=== PATIENT | female | born 1990 | race Caucasian/White ===

== ENCOUNTER 2018-08-04 21:49 | Emergency (ER) | payer SELFPAY | END 2018-08-05 00:53 | disposition left against medical advice (07) | LOC: ER 21:49 | DX: Z53.21 Procedure and treatment not carried out due to patient leaving prior to being seen by health care provider (principal) ==

== ENCOUNTER 2019-01-24 17:29 | Emergency (ER) | payer OTHER ==
[~2019-01-24] VITALS: Ht 175.3 cm; Wt 102.0 kg
[2019-01-24] MEDS ORDERED: HYDROCODONE/ACETAMINOPHEN 5/325MG TABLET PO ONE (23:15)
[2019-01-25 00:31] VITALS: BP 128/74
== END 2019-01-25 00:31 | disposition home or self-care (01) ==
LOC: ER 17:29
DX: M79.672 Pain in left foot (principal); M79.671 Pain in right foot; M21.611 Bunion of right foot; Z98.890 Other specified postprocedural states
CPT/HCPCS: 81025; 99282

== ENCOUNTER 2020-09-07 00:37 | Emergency (ER) | payer MEDICAID, OTHER ==
[~2020-09-07] VITALS: Ht 172.7 cm; Wt 93.0 kg
[2020-09-07 01:11] VITALS: BP 141/95
[2020-09-07] MEDS ORDERED: CETI-89 MT (02:08)
[2020-09-07] MEDS ORDERED: ALBU18HF2 IH (02:08)
== END 2020-09-07 02:25 | disposition home or self-care (01) ==
LOC: ER 00:37
DX: R05 Cough (principal); R09.81 Nasal congestion; Z20.822 Contact with and (suspected) exposure to COVID-19; Z98.890 Other specified postprocedural states
CPT/HCPCS: 71045; 99284; C9803; U0003

== ENCOUNTER 2021-11-11 20:51 | Emergency (ER) | payer MEDICAID, OTHER ==
[~2021-11-11] VITALS: Ht 172.7 cm; Wt 109.8 kg
[~2021-11-11 20:51] MED LIST: ALBU18HF2 IH; CETI-89 MT
[2021-11-12 00:18] LABS: BASOPHILS % 0.2 % (0.0-2.0); EOSINOPHILS % 1.8 % (0.0-5.0); HEMATOCRIT. 33.1 % (36.0-48.0); HEMOGLOBIN. 11.2 g/dL (12.0-16.0); MEAN CORPUSCULAR HEMOGLOBIN 29.9 pg (28.0-32.0); MEAN CORPUSCULAR VOLUME 88.5 fL (81.0-99.0); MEAN PLATELET VOLUME 7.5 fl (7.4-10.4); MONOCYTES % 8.5 % (2.0-8.0); NEUTROPHILS % 67.5 % (40.0-76.0); PLATELET 275 x1000/uL (130-400); RED BLOOD CELL COUNT 3.75 mill/uL (4.2-5.4); RED CELL DISTRIBUTION WIDTH 13.4 % (11.6-14.6)
[2021-11-12 00:36] LABS: CHLORIDE 105 mEq/L (98-107)
[2021-11-12 01:28] LABS: HCG SCREEN NEGATIVE
[2021-11-12 01:51] VITALS: BP 126/78
== END 2021-11-12 01:56 | disposition home or self-care (01) ==
LOC: ER 20:51
DX: R00.2 Palpitations (principal); R07.89 Other chest pain; Z98.890 Other specified postprocedural states
CPT/HCPCS: 36415; 71045; 80053; 84484; 84703; 85025; 93005; 99285

== ENCOUNTER 2021-12-15 19:11 | Emergency (ER) | payer MEDICAID ==
[~2021-12-15] VITALS: Ht 167.6 cm; Wt 109.0 kg
[2021-12-15] MEDS ORDERED: DOXYCYCLINE HYCLATE 100MG CAPSULE PO ONE ×2 (20:15→20:30)
[2021-12-15] MEDS ORDERED: IBUPROFEN 600MG TABLET PO ONE (20:30)
[2021-12-15] MEDS ORDERED: BACITRACIN 15GM TUBE TOP ONE (20:30)
[2021-12-15] MEDS ORDERED: IBUP-2029 MT (20:36)
[2021-12-15] MEDS ORDERED: DOXY100T2 MT (20:36)
[2021-12-15] MEDS ORDERED: DOXYCYCLINE HYCLATE 100MG CAPSULE PO SCH (20:45)
[2021-12-15 20:47] VITALS: BP 112/78
== END 2021-12-15 20:47 | disposition home or self-care (01) ==
LOC: ER 19:11
DX: L98.498 Non-pressure chronic ulcer of skin of other sites with other specified severity (principal); I10 Essential (primary) hypertension; Z98.890 Other specified postprocedural states; R21 Rash and other nonspecific skin eruption
CPT/HCPCS: 81025; 99283

== ENCOUNTER 2022-11-14 15:13 | Emergency (ER) | payer MEDICAID, OTHER ==
[~2022-11-14] VITALS: Ht 170.2 cm; Wt 113.4 kg
[~2022-11-14 15:13] MED LIST changes: +DOXY100T2 MT; +IBUP-2029 MT
[2022-11-14 15:23] VITALS: TEMP 98.5; O2SAT 97
[2022-11-14 16:15] VITALS: BP 123/80; PULSE 84; RESP 16
[2022-11-14] MEDS ORDERED: KETOROLAC 60MG/2ML VIAL IM ONE (16:15)
[2022-11-14 16:36] LABS: HCG SCREEN NEGATIVE
[2022-11-14 16:43] LABS: BASOPHILS % 0.3 % (0.0-2.0); EOSINOPHILS % 0.8 % (0.0-5.0); HEMATOCRIT. 35.4 % (36.0-48.0); HEMOGLOBIN. 12.2 g/dL (12.0-16.0); LYMPHOCYTES % 15.1 % (20.0-50.0); MEAN CORPUSCULAR HEMOGLOBIN 30.4 pg (28.0-32.0); MEAN CORPUSCULAR VOLUME 88.2 fL (81.0-99.0); MEAN PLATELET VOLUME 7.6 fl (7.4-10.4); MONOCYTES % 6.6 % (2.0-8.0); NEUTROPHILS % 77.2 % (40.0-76.0); PLATELET 287 x1000/uL (130-400); RED BLOOD CELL COUNT 4.01 mill/uL (4.2-5.4); RED CELL DISTRIBUTION WIDTH 13.4 % (11.6-14.6)
[2022-11-14 16:55] LABS: CHLORIDE 107 mEq/L (98-107)
[2022-11-14 16:56] LABS: CLARITY URINE HAZY (CLEAR); COLOR URINE YELLOW (YELLOW); SPECIFIC GRAVITY URINE 1.023 (1.005-1.030)
[2022-11-14 16:57] LABS: KETONES URINE NEGATIVE (NEGATIVE); LEUKOCYTE ESTERASE URINE NEGATIVE (NEGATIVE); NITRITE URINE POSITIVE (NEGATIVE); OCCULT BLOOD URINE TRACE (NEGATIVE); PROTEIN URINE NEGATIVE (NEGATIVE)
[2022-11-14] MEDS ORDERED: CEFTRIAXONE SODIUM 1 G/VIAL IM ONE (17:15)
[2022-11-14] MEDS ORDERED: LIDOCAINE HCL 1% 20ML VIAL (Pyxis) INJ INFIL ONE (17:15)
[2022-11-14] MEDS ORDERED: CEFP200T13 MT (17:58)
[2022-11-14] MEDS ORDERED: TOPUD PO (17:58)
[2022-11-14] MEDS ORDERED: IBUP-2028 MT (17:58)
== END 2022-11-14 18:13 | disposition home or self-care (01) ==
LOC: ER 15:36
DX: N39.0 Urinary tract infection, site not specified (principal); Z98.890 Other specified postprocedural states; Z79.899 Other long term (current) drug therapy
CPT/HCPCS: 36415; 74176; 80053; 81003; 81025; 83690; 84703; 85025; 96372; 99285; J0696; J1885; J3490; Z7610

== ENCOUNTER 2023-04-16 22:40 | Emergency (ER) | payer OTHER ==
[~2023-04-16] VITALS: Ht 172.7 cm; Wt 114.7 kg
[~2023-04-16 22:40] MED LIST changes: +CEFP200T13 MT; +IBUP-2028 MT; +TOPUD PO
[2023-04-16 22:46] VITALS: O2SAT 96
[2023-04-16 23:19] LABS: BASOPHILS % 0.3 % (0.0-2.0); EOSINOPHILS % 1.9 % (0.0-5.0); HEMATOCRIT. 34.9 % (36.0-48.0); HEMOGLOBIN. 11.9 g/dL (12.0-16.0); LYMPHOCYTES % 18.6 % (20.0-50.0); MEAN CORPUSCULAR HGB CONC 34.2 g/dL (31.0-37.0); MEAN CORPUSCULAR VOLUME 87.5 fL (81.0-99.0); MEAN PLATELET VOLUME 7.5 fl (7.4-10.4); MONOCYTES % 6.5 % (2.0-8.0); NEUTROPHILS % 72.7 % (40.0-76.0); PLATELET 288 x1000/uL (130-400); RED BLOOD CELL COUNT 3.99 mill/uL (4.2-5.4); RED CELL DISTRIBUTION WIDTH 13.3 % (11.6-14.6); WHITE BLOOD COUNT 9.7 x1000/uL (4.5-11.0)
[2023-04-16 23:41] LABS: ALANINE AMINOTRANSFERASE 11 IU/L (10-49); ALBUMIN 4.1 g/dL (3.2-4.8); ASPARTATE AMINOTRANSFERASE 15 IU/L (<34); BILIRUBIN TOTAL 0.5 mg/dL (0.1-1.0); CALCIUM 9.5 mg/dL (8.7-10.4); CARBON DIOXIDE 24 mEq/L (21-32); CHLORIDE 106 mEq/L (98-107); CREATININE 0.6 mg/dL (0.6-1.0); GLUCOSE 120 mg/dL (70-105); POTASSIUM 3.6 mEq/L (3.5-5.1); PROTEIN TOTAL 7.3 g/dL (6.0-8.3); SODIUM 138 mEq/L (136-145); UREA NITROGEN BLOOD 13 mg/dL (9-23)
[2023-04-16] MEDS ORDERED: KETOROLAC 60MG/2ML VIAL IM STA (23:59)
[2023-04-16] MEDS ORDERED: ONDANSETRON HCL 4MG/2ML INJ IM STA (23:59)
[2023-04-17 00:23] VITALS: BP 121/87
[2023-04-17 00:26] LABS: CLARITY URINE CLEAR (CLEAR); COLOR URINE YELLOW (YELLOW); PH URINE 6.5 (4.5-8.0); SPECIFIC GRAVITY URINE 1.021 (1.005-1.030)
[2023-04-17 00:27] LABS: GLUCOSE URINE NEGATIVE (NEGATIVE); KETONES URINE NEGATIVE (NEGATIVE); LEUKOCYTE ESTERASE URINE NEGATIVE (NEGATIVE); NITRITE URINE NEGATIVE (NEGATIVE); OCCULT BLOOD URINE TRACE (NEGATIVE); PROTEIN URINE NEGATIVE (NEGATIVE); UROBILINOGEN URINE 1 E.U./dL (0.2-1.0)
[2023-04-17 00:29] LABS: BACTERIA URINE TRACE; RBC URINE 0-2 /hpf (0-2); SQUAMOUS EPITHELIAL CELL URINE FEW /lpf (RARE/1+); WBC URINE NONE SEEN /hpf (0-2)
[2023-04-17] MEDS ORDERED: NAPR-681 PO (01:13)
[2023-04-17] MEDS ORDERED: D-ME473S50 PO (01:13)
[2023-04-17] MEDS ORDERED: ALBU18HF2 IH (01:13)
[2023-04-17 01:28] VITALS: PULSE 100; RESP 19; TEMP 98.1
== END 2023-04-17 01:32 | disposition home or self-care (01) ==
LOC: ER 22:40
DX: J20.9 Acute bronchitis, unspecified (principal); R11.2 Nausea with vomiting, unspecified; Z98.890 Other specified postprocedural states; Z79.899 Other long term (current) drug therapy; Z20.822 Contact with and (suspected) exposure to COVID-19
CPT/HCPCS: 80053; 81003; 81025; 87430; 83690; 85025; 87070; 36415; 71045; 99284; 87426; 96372; C9803; J1885; J2405; Z7610

== ENCOUNTER 2024-02-11 19:49 | Emergency (ER) | payer OTHER ==
[~2024-02-11 19:49] MED LIST changes: +D-ME473S50 PO; +NAPR-681 PO
[2024-02-11 20:15] VITALS: PULSE 116; RESP 20; O2SAT 98
== END 2024-02-11 21:00 | disposition left against medical advice (07) ==
LOC: ER 19:49
DX: R05.9 Cough, unspecified (principal); Z53.21 Procedure and treatment not carried out due to patient leaving prior to being seen by health care provider